=== PATIENT | male | born 1950 | race African-American/Black ===

== ENCOUNTER 2017-11-17 11:18 | Outpatient (CLI) | payer MEDICARE, OTHER ==
--- NOTE | 2017-11-17 13:19 | RAD ---
TWO VIEWS CHEST: Date: 11-17-17 Comparison: 03-28-10 History: Dyspnea. FINDINGS: There is mild increased interstitial density bilaterally. There is no pneumothorax or pleural fluid. There is no focal consolidation or alveolar edema. 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 NO focal consolidation or alveolar edema. IMPRESSION: Nonspecific linear interstitial density with no focal consolidation or alveolar edema. POS: [facility]
== END 2017-11-17 11:19 | disposition home or self-care (01) ==
LOC: RAD 11:18
PROVIDERS: ATTEND Internal Medicine
DX: J98.4 Other disorders of lung (principal)
CPT/HCPCS: 71046

== ENCOUNTER 2017-11-26 12:24 | Outpatient (CLI) | payer MEDICARE | END 2017-11-26 12:25 | disposition home or self-care (01) | LOC: CP 12:24 | PROVIDERS: ATTEND Internal Medicine | DX: J44.9 Chronic obstructive pulmonary disease, unspecified (principal) | CPT/HCPCS: 94060; 94727; 94729 ==

== ENCOUNTER 2021-11-26 23:16 | Inpatient (IN) | payer MEDICARE, OTHER ==
[2021-11-26] MEDS ORDERED: Aspirin Chewable 81 MG TAB ONE (23:35)
[2021-11-26] MEDS ORDERED: Nitroglycerin 2% Ointment 1 INCH/1 GM Packet ONE (23:35)
[2021-11-26 23:46] LABS: #Eosinphils 0.4 thou/uL (0.0-0.7); #Lymphocytes 2.3 thou/uL (1.20-3.40); #Monocytes 0.5 thou/uL (0.11-0.59); #Neutrophils 5.1 thou/uL (1.40-6.50); %Basophils 0.3 % (0.0-1.0); %Eosinophils 5.1 % (0.0-10.0); %Lymphocytes 27.8 % (21.0-51.0); %Monocytes 5.7 % (0.0-10.0); Hemoglobin 12.9 g/dL (14.0-18.0); Mean Corpuscular HGB CONC 34.1 g/dL (32.0-36.0); Mean Corpuscular Hemoglobin 31.3 pg (27.0-31.0); Mean Corpuscular Volume 91.7 fL (78.0-98.0); Mean Platelet Volume 6.9 fL (7.4-10.4); Platelet Count 343 thou/uL (130-400); RBC Distribution Width 12.5 % (11.5-14.5); Red Blood Cell (RBC) Count 4.13 mill/uL (4.70-6.10); White Blood Cell (WBC) Count 8.3 thou/uL (4.8-10.8)
[2021-11-27 00:03] LABS: ALT (SGPT) 15 U/L (8-55); AST (SGOT) 21 U/L (5-34); Albumin 3.7 g/dL (3.4-4.8); Alkaline Phosphatase 100 U/L (40-110); Anion Gap 15 mmol/L (10-20); BUN (Urea Nitrogen) 24 mg/dL (8.4-25.7); Bilirubin, Total 0.2 mg/dL (0.2-1.2); Calc. Creatinine Clearance 0 mL/min (70-130); Calcium 9.6 mg/dL (7.8-10.44); Carbon Dioxide 25 mmol/L (23-31); Chloride 97 mmol/L (98-107); Globulin 4.9 g/dL (2.4-3.5); Glucose 381 mg/dL (80-115); Potassium 4.4 mmol/L (3.5-5.1); Protein, Total 8.6 g/dL (5.8-8.1); Sodium 133 mmol/L (136-145)
[2021-11-27 00:05] LABS: Magnesium 1.8 mg/dL (1.6-2.6)
[2021-11-27] MEDS ORDERED: Bisacodyl 10 MG SUPP PR PRN (00:52)
[2021-11-27] MEDS ORDERED: HYDROcodone/Acetaminophen 10/325 mg Tablet PO PRN (00:52)
[2021-11-27] MEDS ORDERED: Acetaminophen 325 MG TAB PO PRN (00:52)
[2021-11-27] MEDS ORDERED: Nitroglycerin 0.4 MG TAB (25 Tab Bottle) SL PRN (00:52)
[2021-11-27] MEDS ORDERED: hydrALAZINE 20 MG/ML VIAL SLOW IVP PRN (00:54)
[2021-11-27] MEDS ORDERED: Dextrose 5% in Water 1,000 ML IV PRN (00:56)
[2021-11-27] MEDS ORDERED: HumaLOG 300 UNITS/3 ML VIAL SC PRN (00:56)
[2021-11-27] MEDS ORDERED: Dextrose 50% Abboject 50 ML SYRINGE SLOW IVP PRN (00:56)
[2021-11-27 01:27] VITALS: BMI 33.5
[2021-11-27 03:25] LABS: #Basophils 0.1 thou/uL (0.0-0.2); #Eosinphils 0.4 thou/uL (0.0-0.7); #Lymphocytes 2.2 thou/uL (1.20-3.40); #Monocytes 0.5 thou/uL (0.11-0.59); #Neutrophils 4.8 thou/uL (1.40-6.50); %Basophils 0.7 % (0.0-1.0); %Eosinophils 5.4 % (0.0-10.0); %Monocytes 6.2 % (0.0-10.0); %Neutrophils 59.7 % (42.0-75.0); Hemoglobin 11.7 g/dL (14.0-18.0); Mean Corpuscular HGB CONC 33.5 g/dL (32.0-36.0); Mean Corpuscular Volume 92.6 fL (78.0-98.0); Platelet Count 324 thou/uL (130-400); RBC Distribution Width 12.5 % (11.5-14.5); Red Blood Cell (RBC) Count 3.78 mill/uL (4.70-6.10)
[2021-11-27 03:47] LABS: Albumin 3.4 g/dL (3.4-4.8); Anion Gap 12 mmol/L (10-20); BUN (Urea Nitrogen) 25 mg/dL (8.4-25.7); BUN/Creatinine Ratio 22.73; Calc. Creatinine Clearance 95 mL/min (70-130); Calcium 9.6 mg/dL (7.8-10.44); Carbon Dioxide 25 mmol/L (23-31); Cardiac Risk 4.4 (Less than 4.5); Chloride 101 mmol/L (98-107); Cholesterol 151 mg/dl (< 200 Desired); Glucose 240 mg/dL (80-115); HDL Cholesterol 34 mg/dL (>60 Neg Risk); LDL Cholesterol, Calculated 91 mg/dL; Phosphorus 3.5 mg/dL (2.3-4.7); Potassium 4.1 mmol/L (3.5-5.1); Sodium 134 mmol/L (136-145); Triglycerides 130 mg/dL (Less than 150)
[2021-11-27 03:50] LABS: Troponin I 0.167 ng/mL (< 0.028)
[2021-11-27] MEDS: Brimonidine Tartrate 0.2% Ophth Soln 5 ml Bottle EA EYE SCH ×3 (06:13→22:35)
[2021-11-27] MEDS: Furosemide 40 MG/4 ML VIAL SLOW IVP SCH ×2 (06:13→14:43)
[2021-11-27 06:18] LABS: Troponin I 0.426 ng/mL (< 0.028)
[2021-11-27] MEDS ORDERED: glyBURIDE 5 MG TAB PO SCH (08:00)
[2021-11-27] MEDS ORDERED: metFORMIN 500 MG TAB PO SCH (08:00)
[2021-11-27] MEDS: Famotidine 20 MG TAB PO SCH ×2 (08:47→22:30)
[2021-11-27] MEDS: Carvedilol 6.25 MG TAB PO SCH ×2 (08:47→16:55)
[2021-11-27] MEDS: Clopidogrel Bisulfate 75 MG TAB PO SCH (08:47)
[2021-11-27] MEDS: Aspirin 81 mg Enteric Coated Tablet PO SCH (08:47)
[2021-11-27] MEDS: DorzolamidE/Timolol 2%/0.5% Ophth Soln 10 ml Bottle EA EYE SCH ×2 (08:56→22:28)
[2021-11-27] MEDS ORDERED: Aspirin Chewable 81 MG TAB PO SCH (09:00)
[2021-11-27] MEDS ORDERED: Enoxaparin Sodium 100 MG/ML SYRINGE SC SCH (09:00)
[2021-11-27] MEDS ORDERED: Enoxaparin Sodium 40 MG/0.4 ML SYRINGE SC SCH (09:00)
[2021-11-27] MEDS ORDERED: Communication Order-Pharmacy FS SCH (13:00)
[2021-11-27 14:36] LABS: CKMB 8.4 ng/mL (0-6.6)
[2021-11-27] MEDS ORDERED: Insulin Glargine 30 UNITS/0.3 ML VIAL SC SCH ×2 (15:30→21:00)
[2021-11-27] MEDS ORDERED: Electrolyte Replacement Protocol 1 EACH FS SCH (15:30)
[2021-11-27] MEDS ORDERED: Magnesium 2 GM/50 ML(in water) 2 GM in Premix Bag 1 BAG IVPB SCH (15:30)
[2021-11-27] MEDS ORDERED: Electrolyte Replacement Protocol FS PRN (15:45)
[2021-11-27] MEDS ORDERED: Atorvastatin Calcium 40 MG TAB PO SCH (21:00)
[2021-11-27] MEDS ORDERED: Atorvastatin Calcium 20 MG TAB PO SCH (21:00)
[2021-11-27] MEDS ORDERED: Latanoprost 0.005% Ophth Soln 2.5 ml Bottle EA EYE SCH (21:00)
[2021-11-27] MEDS ORDERED: Melatonin 3 MG TAB PO SCH (21:00)
[2021-11-28 04:58] LABS: #Eosinphils 0.5 thou/uL (0.0-0.7); #Lymphocytes 1.8 thou/uL (1.20-3.40); #Monocytes 0.6 thou/uL (0.11-0.59); #Neutrophils 3.5 thou/uL (1.40-6.50); %Basophils 0.4 % (0.0-1.0); %Eosinophils 7.3 % (0.0-10.0); %Lymphocytes 28.5 % (21.0-51.0); %Monocytes 8.9 % (0.0-10.0); %Neutrophils 54.9 % (42.0-75.0); Hemoglobin 12.3 g/dL (14.0-18.0); Mean Corpuscular HGB CONC 32.9 g/dL (32.0-36.0); Mean Corpuscular Hemoglobin 30.7 pg (27.0-31.0); Mean Corpuscular Volume 93.5 fL (78.0-98.0); Mean Platelet Volume 7.1 fL (7.4-10.4); Platelet Count 311 thou/uL (130-400); RBC Distribution Width 12.5 % (11.5-14.5); Red Blood Cell (RBC) Count 4.01 mill/uL (4.70-6.10); White Blood Cell (WBC) Count 6.3 thou/uL (4.8-10.8)
[2021-11-28 05:23] LABS: Critical Call Chem Troponin I RESULT DECREASING
[2021-11-28 05:25] LABS: Anion Gap 12 mmol/L (10-20); BUN (Urea Nitrogen) 22 mg/dL (8.4-25.7); Calc. Creatinine Clearance 88 mL/min (70-130); Calcium 9.4 mg/dL (7.8-10.44); Carbon Dioxide 27 mmol/L (23-31); Chloride 99 mmol/L (98-107); Glucose 204 mg/dL (80-115); Magnesium 2.2 mg/dL (1.6-2.6); Potassium 4.2 mmol/L (3.5-5.1); Sodium 134 mmol/L (136-145)
[2021-11-28] MEDS ORDERED: Sodium Chloride 0.9% 1,000 ML IV SCH ×2 (06:00→08:50)
[2021-11-28 06:18] LABS: CKMB 4.9 ng/mL (0-6.6)
[2021-11-28] MEDS: Aspirin 81 mg Enteric Coated Tablet PO SCH (06:23)
[2021-11-28] MEDS: Carvedilol 6.25 MG TAB PO SCH ×2 (06:24→17:00)
[2021-11-28] MEDS: Famotidine 20 MG TAB PO SCH (06:24)
[2021-11-28] MEDS: Clopidogrel Bisulfate 75 MG TAB PO SCH (06:24)
[2021-11-28] MEDS: Brimonidine Tartrate 0.2% Ophth Soln 5 ml Bottle EA EYE SCH ×2 (06:25→16:18)
[2021-11-28] MEDS: DorzolamidE/Timolol 2%/0.5% Ophth Soln 10 ml Bottle EA EYE SCH (06:26)
[2021-11-28] MEDS ORDERED: Lidocaine 1% (PF) 30 ML VIAL ONE (06:38)
[2021-11-28] MEDS ORDERED: Heparin 10,000 UNITS/ 10 ML VIAL ONE (06:42)
[2021-11-28] MEDS ORDERED: Midazolam HCl 2 mg/2 ml Vial ONE (07:25)
[2021-11-28] MEDS ORDERED: Fentanyl 100 MCG/2 ML VIAL ONE (07:26)
[2021-11-28] MEDS ORDERED: Protamine Sulfate 50 MG/5 ML VIAL ONE (08:19)
[2021-11-28] MEDS ORDERED: Nitroglycerin 0.4 MG TAB (25 Tab Bottle) SL PRN (08:49)
[2021-11-28] MEDS ORDERED: Sodium Chloride 0.9% 200 ML IV PRN (08:49)
[2021-11-28] MEDS ORDERED: Acetaminophen/Codeine 30-300mg Tablet PO PRN ×2 (08:49)
[2021-11-28] MEDS ORDERED: Iopamidol 370 76% 100 ML VIAL ONE (08:50)
[2021-11-28] MEDS ORDERED: Iopamidol 370 76% 50 ML VIAL FS ONE (08:50)
[2021-11-28] MEDS: HumaLOG 300 UNITS/3 ML VIAL SC PRN ×2 (11:21→16:59)
[2021-11-28 16:06] VITALS: TEMP 97.8
[2021-11-28] MEDS ORDERED: glyBURIDE 5 MG TAB PO SCH (17:00)
[2021-11-28 17:02] VITALS: BP 156/76
[2021-11-28] MEDS ORDERED: Insulin Glargine 30 UNITS/0.3 ML VIAL SC SCH (21:00)
[2021-11-28] MEDS ORDERED: Rosuvastatin 20 MG TAB PO SCH (21:00)
== END 2021-11-28 17:45 | disposition home or self-care (01) | DRG 280 ==
LOC: ERS 23:16 → 2SW 11-27 00:18 → OBSVTOIN 11-27 14:56
PROVIDERS: ADMIT Student in an Organized Health Care Education/Training Program; ATTEND Internal Medicine
PROC: 4A023N7 Measurement of Cardiac Sampling and Pressure, Left Heart, Percutaneous Approach (ICD-10-PCS; principal; 2021-11-28)
PROC: B2131ZZ Fluoroscopy of Multiple Coronary Artery Bypass Grafts using Low Osmolar Contrast (ICD-10-PCS; 2021-11-28)
PROC: B2111ZZ Fluoroscopy of Multiple Coronary Arteries using Low Osmolar Contrast (ICD-10-PCS; 2021-11-28)
PROC: B2151ZZ Fluoroscopy of Left Heart using Low Osmolar Contrast (ICD-10-PCS; 2021-11-28)
DX: I21.4 Non-ST elevation (NSTEMI) myocardial infarction (principal); I50.23 Acute on chronic systolic (congestive) heart failure; N17.9 Acute kidney failure, unspecified; I11.0 Hypertensive heart disease with heart failure; E11.9 Type 2 diabetes mellitus without complications; E78.5 Hyperlipidemia, unspecified; E78.00 Pure hypercholesterolemia, unspecified; Z20.822 Contact with and (suspected) exposure to COVID-19; E66.9 Obesity, unspecified; F10.20 Alcohol dependence, uncomplicated; I25.10 Atherosclerotic heart disease of native coronary artery without angina pectoris; Z95.1 Presence of aortocoronary bypass graft; Z79.82 Long term (current) use of aspirin; Z79.899 Other long term (current) drug therapy; Z79.4 Long term (current) use of insulin; I25.2 Old myocardial infarction; Z87.891 Personal history of nicotine dependence; Z72.89 Other problems related to lifestyle; Z68.33 Body mass index [BMI] 33.0-33.9, adult
CPT/HCPCS: 36415; 36416; 71045; 80048; 80053; 80061; 80069; 82553; 83735; 83880; 84484; 85025; 85347; 93005; 93306; 93459; 93798; 99152; 99153; J1644; J1650; J1815; J1940; J2001; J2250; J2720; J3010; J3475; J7050; Q9967; U0003; U0005

== ENCOUNTER 2022-05-26 19:06 | Inpatient (IN) | payer OTHER ==
[2022-05-26 20:06] LABS: #Eosinphils 0.3 thou/uL (0.0-0.7); #Lymphocytes 1.6 thou/uL (1.20-3.40); #Monocytes 0.6 thou/uL (0.11-0.59); #Neutrophils 2.7 thou/uL (1.40-6.50); %Basophils 0.6 % (0.0-1.0); %Eosinophils 6.2 % (0.0-10.0); %Lymphocytes 29.8 % (21.0-51.0); %Monocytes 11.2 % (0.0-10.0); %Neutrophils 52.2 % (42.0-75.0); Hemoglobin 11.3 g/dL (14.0-18.0); Mean Corpuscular HGB CONC 33.6 g/dL (32.0-36.0); Mean Corpuscular Hemoglobin 30.8 pg (27.0-31.0); Mean Corpuscular Volume 91.5 fl (78.0-98.0); Platelet Count 238 10x3/uL (130-400); RBC Distribution Width 12.5 % (11.5-14.5); Red Blood Cell (RBC) Count 3.69 mill/uL (4.70-6.10); White Blood Cell (WBC) Count 5.2 10x3/uL (4.8-10.8)
[2022-05-26 20:24] LABS: ALT (SGPT) 26 U/L (8-55); AST (SGOT) 35 U/L (5-34); Albumin 3.9 g/dL (3.4-4.8); Alkaline Phosphatase 98 U/L (40-110); Anion Gap 11 mmol/L (10-20); BUN (Urea Nitrogen) 33 mg/dL (8.4-25.7); Bilirubin, Total 0.3 mg/dL (0.2-1.2); Calc. Creatinine Clearance 0 mL/min (70-130); Calcium 9.4 mg/dL (7.8-10.44); Carbon Dioxide 24 mmol/L (23-31); Chloride 104 mmol/L (98-107); Estimated GFR 59; Globulin 3.8 g/dL (2.4-3.5); Glucose 308 mg/dL (80-115); Potassium 4.4 mmol/L (3.5-5.1); Protein, Total 7.7 g/dL (5.8-8.1); Sodium 135 mmol/L (136-145)
[2022-05-26] MEDS ORDERED: Aspirin Chewable 81 MG TAB ONE (20:43)
[2022-05-26] MEDS ORDERED: Ondansetron ODT 4 MG TAB PO PRN (22:47)
[2022-05-26] MEDS ORDERED: Acetaminophen 650 MG Suppository PR PRN (22:47)
[2022-05-26] MEDS ORDERED: Ondansetron PF 4 MG/2 ML Vial IVP PRN (22:47)
[2022-05-26 23:15] LABS: Troponin I 0.015 ng/mL (< 0.028)
[2022-05-26] MEDS ORDERED: Furosemide 40 MG/4 ML VIAL SLOW IVP SCH (23:45)
[2022-05-26 23:46] LABS: SARS-CoV-2 NAA Rapid Test Not Detected (NotDetected)
[2022-05-27] MEDS: Sodium Chloride 0.9% 1,000 ML IV SCH ×2 (01:28→12:33)
[2022-05-27] MEDS ORDERED: Morphine 4 MG/ML VIAL SLOW IVP PRN (01:41)
[2022-05-27] MEDS ORDERED: Dextrose 5% in Water 1,000 ML IV PRN (01:44)
[2022-05-27] MEDS ORDERED: Dextrose 50% Abboject 50 ML SYRINGE SLOW IVP PRN (01:44)
[2022-05-27] MEDS ORDERED: HumaLOG 300 UNITS/3 ML VIAL SC PRN ×2 (01:44)
[2022-05-27] MEDS ORDERED: Nitroglycerin 2% Ointment 1 INCH/1 GM Packet TOP SCH (01:45)
[2022-05-27 02:32] LABS: #Eosinphils 0.4 thou/uL (0.0-0.7); #Monocytes 0.8 thou/uL (0.11-0.59); %Basophils 0.6 % (0.0-1.0); %Eosinophils 7.1 % (0.0-10.0); %Lymphocytes 31.7 % (21.0-51.0); %Monocytes 12.8 % (0.0-10.0); %Neutrophils 47.8 % (42.0-75.0); Hemoglobin 11.6 g/dL (14.0-18.0); Mean Corpuscular Hemoglobin 31.1 pg (27.0-31.0); Mean Corpuscular Volume 91.5 fl (78.0-98.0); Mean Platelet Volume 7.9 fL (7.4-10.4); Platelet Count 241 10x3/uL (130-400); RBC Distribution Width 12.8 % (11.5-14.5); Red Blood Cell (RBC) Count 3.71 mill/uL (4.70-6.10); White Blood Cell (WBC) Count 6.3 10x3/uL (4.8-10.8)
[2022-05-27 02:42] LABS: Troponin I 0.015 ng/mL (< 0.028)
[2022-05-27] MEDS ORDERED: hydrALAZINE 20 MG/ML VIAL SLOW IVP PRN (02:51)
[2022-05-27 03:05] LABS: Anion Gap 14 mmol/L (10-20); BUN (Urea Nitrogen) 31 mg/dL (8.4-25.7); Calc. Creatinine Clearance 88 mL/min (70-130); Calcium 9.6 mg/dL (7.8-10.44); Carbon Dioxide 23 mmol/L (23-31); Chloride 106 mmol/L (98-107); Estimated GFR 69; Glucose 93 mg/dL (80-115); Sodium 139 mmol/L (136-145)
[2022-05-27] MEDS: Enoxaparin Sodium 100 MG/ML SYRINGE SC SCH ×2 (04:04→18:40)
[2022-05-27 04:47] LABS: Bacteria/HPF None Seen HPF (None Seen); Bilirubin Negative (Negative); Blood, Urine Negative (Negative); Clarity Clear (Clear); Glucose, Urine (Dipstick) 100 mg/dL (Negative); Ketone, Urine Negative (Negative); Leukocyte Negative Leu/uL (Negative); Nitrite Negative (Negative); Protein, Urine (Dipstick) 70 mg/dL (Neg-Trace); RBC/HPF 0-3 HPF (0-3); Specific Gravity, Urine 1.012 (1.002-1.036); Squamous Epithelial None Seen HPF (0-3); Urobilinogen Normal mg/dL (Less than 2); WBC/HPF 0-3 HPF (0-3)
[2022-05-27] MEDS: Aspirin Chewable 81 MG TAB PO SCH (08:33)
[2022-05-27] MEDS: Brimonidine Tartrate 0.2% Ophth Soln 5 ml Bottle EA EYE SCH ×2 (15:58→22:29)
[2022-05-27] MEDS: Carvedilol 6.25 MG TAB PO SCH (16:47)
[2022-05-27] MEDS: Rosuvastatin 20 MG TAB PO SCH (19:45)
[2022-05-27 21:00] LABS: CKMB 5.3 ng/mL (0-6.6)
[2022-05-27] MEDS ORDERED: Nitroglycerin 0.4 MG TAB (25 Tab Bottle) ONE (21:11)
[2022-05-27] MEDS ORDERED: Nitroglycerin 50 MG/250 ML BOT 250 ML IVPB SCH (21:30)
[2022-05-27] MEDS ORDERED: Heparin 25,000 units/D5W 500 ML IVPB SCH (21:30)
[2022-05-27] MEDS ORDERED: Heparin 10,000 UNITS/ 10 ML VIAL SLOW IVP SCH (21:30)
[2022-05-27 22:24] LABS: Hemoglobin 11.4 g/dL (14.0-18.0); Platelet Count 235 10x3/uL (130-400)
[2022-05-27] MEDS: Insulin Glargine 30 UNITS/0.3 ML VIAL SC SCH (22:28)
[2022-05-27] MEDS: DorzolamidE/Timolol 2%/0.5% Ophth Soln 10 ml Bottle EA EYE SCH (22:29)
[2022-05-27] MEDS: Latanoprost 0.005% Ophth Soln 2.5 ml Bottle EA EYE SCH (22:29)
[2022-05-27] MEDS: Nitroglycerin 50 MG/250 ML BOT 250 ML ONE ×2 (23:41→23:44)
[2022-05-28] MEDS ORDERED: Morphine 4 MG/ML VIAL SLOW IVP PRN (00:21)
[2022-05-28] MEDS ORDERED: Clopidogrel Bisulfate 300 MG TAB PO SCH (05:00)
[2022-05-28 06:48] LABS: #Eosinphils 0.3 thou/uL (0.0-0.7); #Lymphocytes 1.5 thou/uL (1.20-3.40); #Monocytes 0.6 thou/uL (0.11-0.59); #Neutrophils 2.6 thou/uL (1.40-6.50); %Basophils 0.6 % (0.0-1.0); %Eosinophils 6.3 % (0.0-10.0); %Lymphocytes 30.1 % (21.0-51.0); %Monocytes 11.7 % (0.0-10.0); %Neutrophils 51.3 % (42.0-75.0); Hemoglobin 12.1 g/dL (14.0-18.0); Mean Corpuscular HGB CONC 32.6 g/dL (32.0-36.0); Mean Corpuscular Hemoglobin 30.3 pg (27.0-31.0); Mean Corpuscular Volume 92.8 fl (78.0-98.0); Mean Platelet Volume 7.4 fL (7.4-10.4); Platelet Count 245 10x3/uL (130-400); RBC Distribution Width 12.6 % (11.5-14.5); Red Blood Cell (RBC) Count 3.99 mill/uL (4.70-6.10); White Blood Cell (WBC) Count 5.1 10x3/uL (4.8-10.8)
[2022-05-28 06:59] LABS: Anion Gap 10 mmol/L (10-20); BUN (Urea Nitrogen) 18 mg/dL (8.4-25.7); Calc. Creatinine Clearance 101 mL/min (70-130); Calcium 9.3 mg/dL (7.8-10.44); Carbon Dioxide 26 mmol/L (23-31); Chloride 104 mmol/L (98-107); Estimated GFR 82; Glucose 175 mg/dL (80-115); Potassium 4.5 mmol/L (3.5-5.1); Sodium 135 mmol/L (136-145)
[2022-05-28 07:36] LABS: CKMB 4.9 ng/mL (0-6.6)
[2022-05-28] MEDS ORDERED: Lidocaine 1% (PF) 30 ML VIAL ONE (07:43)
[2022-05-28] MEDS ORDERED: Heparin 10,000 UNITS/ 10 ML VIAL ONE (07:43)
[2022-05-28] MEDS: Carvedilol 6.25 MG TAB PO SCH ×2 (08:05→15:55)
[2022-05-28] MEDS: Furosemide 40 MG TAB PO SCH (08:05)
[2022-05-28] MEDS: Clopidogrel Bisulfate 75 MG TAB PO SCH (08:05)
[2022-05-28] MEDS: Aspirin Chewable 81 MG TAB PO SCH (08:05)
[2022-05-28] MEDS: Brimonidine Tartrate 0.2% Ophth Soln 5 ml Bottle EA EYE SCH ×3 (08:15→21:29)
[2022-05-28] MEDS: DorzolamidE/Timolol 2%/0.5% Ophth Soln 10 ml Bottle EA EYE SCH ×2 (08:15→21:29)
[2022-05-28] MEDS ORDERED: Sodium Chloride 0.9% 1,000 ML IV SCH ×2 (08:45→11:54)
[2022-05-28] MEDS ORDERED: Communication Order-Pharmacy FS SCH (08:45)
[2022-05-28] MEDS ORDERED: Insulin Glargine 30 UNITS/0.3 ML VIAL SC SCH (09:00)
[2022-05-28] MEDS ORDERED: Enoxaparin Sodium 100 MG/ML SYRINGE SC SCH (09:00)
[2022-05-28] MEDS ORDERED: FENTANYL 50 MCG/ML 1 ML VIAL ONE (09:58)
[2022-05-28] MEDS ORDERED: Midazolam HCl 2 mg/2 ml Vial ONE (09:58)
[2022-05-28] MEDS ORDERED: Nitroglycerin 100MG/250ML BOT 250 ML ONE (10:37)
[2022-05-28] MEDS ORDERED: Bivalirudin 250 MG VIAL ONE (10:48)
[2022-05-28] MEDS ORDERED: Nitroglycerin 50 MG/250 ML BOT 250 ML IVPB SCH (11:52)
[2022-05-28 13:03] LABS: Critical Call Chem Troponin I RESULT DECREASING; Troponin I 0.325 ng/mL (< 0.028)
[2022-05-28] MEDS ORDERED: Iopamidol 370 76% 50 ML VIAL FS ONE (15:44)
[2022-05-28] MEDS ORDERED: Iopamidol 370 76% 100 ML VIAL ONE (15:44)
[2022-05-28] MEDS: Acetaminophen 325 MG TAB PO PRN (16:57)
[2022-05-28] MEDS: Insulin Glargine 30 UNITS/0.3 ML VIAL SC SCH (21:30)
[2022-05-28] MEDS: Latanoprost 0.005% Ophth Soln 2.5 ml Bottle EA EYE SCH (21:30)
[2022-05-28] MEDS: Rosuvastatin 20 MG TAB PO SCH (21:31)
[2022-05-29 03:51] LABS: #Eosinphils 0.3 thou/uL (0.0-0.7); #Lymphocytes 1.2 thou/uL (1.20-3.40); #Monocytes 0.7 thou/uL (0.11-0.59); #Neutrophils 4.8 thou/uL (1.40-6.50); %Basophils 0.6 % (0.0-1.0); %Eosinophils 4.2 % (0.0-10.0); %Lymphocytes 17.3 % (21.0-51.0); %Monocytes 9.8 % (0.0-10.0); %Neutrophils 68.1 % (42.0-75.0); Hemoglobin 12.6 g/dL (14.0-18.0); Mean Corpuscular HGB CONC 34.7 g/dL (32.0-36.0); Mean Corpuscular Hemoglobin 31.5 pg (27.0-31.0); Mean Corpuscular Volume 90.6 fl (78.0-98.0); Mean Platelet Volume 7.5 fL (7.4-10.4); Platelet Count 249 10x3/uL (130-400); RBC Distribution Width 12.6 % (11.5-14.5); White Blood Cell (WBC) Count 7.1 10x3/uL (4.8-10.8)
[2022-05-29 04:07] LABS: ALT (SGPT) 21 U/L (8-55); AST (SGOT) 19 U/L (5-34); Albumin 3.6 g/dL (3.4-4.8); Alkaline Phosphatase 106 U/L (40-110); Anion Gap 11 mmol/L (10-20); BUN (Urea Nitrogen) 28 mg/dL (8.4-25.7); Bilirubin, Total 0.4 mg/dL (0.2-1.2); Calc. Creatinine Clearance 72 mL/min (70-130); Calcium 9.1 mg/dL (7.8-10.44); Carbon Dioxide 23 mmol/L (23-31); Chloride 105 mmol/L (98-107); Estimated GFR 55; Globulin 4.1 g/dL (2.4-3.5); Glucose 136 mg/dL (80-115); Potassium 4.4 mmol/L (3.5-5.1); Protein, Total 7.7 g/dL (5.8-8.1); Sodium 135 mmol/L (136-145)
[2022-05-29] MEDS: Aspirin Chewable 81 MG TAB PO SCH (08:58)
[2022-05-29] MEDS: Carvedilol 6.25 MG TAB PO SCH ×2 (08:59→17:28)
[2022-05-29] MEDS: Clopidogrel Bisulfate 75 MG TAB PO SCH (08:59)
[2022-05-29] MEDS: Furosemide 40 MG TAB PO SCH (09:00)
[2022-05-29] MEDS: Insulin Glargine 30 UNITS/0.3 ML VIAL SC SCH ×2 (09:00→20:57)
[2022-05-29] MEDS: DorzolamidE/Timolol 2%/0.5% Ophth Soln 10 ml Bottle EA EYE SCH ×2 (09:13→20:57)
[2022-05-29] MEDS: Brimonidine Tartrate 0.2% Ophth Soln 5 ml Bottle EA EYE SCH ×3 (09:13→20:57)
[2022-05-29] MEDS: metFORMIN 500 MG TAB PO SCH ×2 (09:46→17:26)
[2022-05-29 13:52] VITALS: BMI 33.8
[2022-05-29] MEDS ORDERED: metFORMIN 500 MG TAB PO SCH (17:00)
[2022-05-29 17:30] LABS: Anion Gap 12 mmol/L (10-20); BUN (Urea Nitrogen) 43 mg/dL (8.4-25.7); Calc. Creatinine Clearance 57 mL/min (70-130); Calcium 8.8 mg/dL (7.8-10.44); Carbon Dioxide 22 mmol/L (23-31); Chloride 102 mmol/L (98-107); Estimated GFR 40; Glucose 142 mg/dL (80-115); Potassium 4.4 mmol/L (3.5-5.1); Sodium 132 mmol/L (136-145)
[2022-05-29] MEDS ORDERED: Bisacodyl 5 MG TAB PO PRN (18:23)
[2022-05-29] MEDS: Latanoprost 0.005% Ophth Soln 2.5 ml Bottle EA EYE SCH (20:56)
[2022-05-29] MEDS: Rosuvastatin 20 MG TAB PO SCH (20:58)
[2022-05-29] MEDS: Senokot S 8.6-50 MG TAB PO SCH (20:59)
[2022-05-29 21:17] LABS: Platelet Count 216 10x3/uL (130-400)
[2022-05-30 05:41] LABS: Anion Gap 13 mmol/L (10-20); BUN (Urea Nitrogen) 37 mg/dL (8.4-25.7); Calc. Creatinine Clearance 71 mL/min (70-130); Calcium 8.8 mg/dL (7.8-10.44); Carbon Dioxide 20 mmol/L (23-31); Chloride 103 mmol/L (98-107); Estimated GFR 51; Glucose 155 mg/dL (80-115); Potassium 4.1 mmol/L (3.5-5.1); Sodium 132 mmol/L (136-145)
[2022-05-30 07:48] VITALS: TEMP 97.6
[2022-05-30] MEDS: Insulin Glargine 30 UNITS/0.3 ML VIAL SC SCH (08:05)
[2022-05-30] MEDS: Aspirin Chewable 81 MG TAB PO SCH (08:07)
[2022-05-30] MEDS: Clopidogrel Bisulfate 75 MG TAB PO SCH (08:07)
[2022-05-30] MEDS: Carvedilol 6.25 MG TAB PO SCH (08:07)
[2022-05-30] MEDS: Senokot S 8.6-50 MG TAB PO SCH (08:07)
[2022-05-30] MEDS: Brimonidine Tartrate 0.2% Ophth Soln 5 ml Bottle EA EYE SCH (08:10)
[2022-05-30] MEDS: DorzolamidE/Timolol 2%/0.5% Ophth Soln 10 ml Bottle EA EYE SCH (08:11)
[2022-05-30 11:22] VITALS: BP 110/59
[2022-05-30] MEDS: Acetaminophen 325 MG TAB PO PRN (11:22)
[2022-05-30] MEDS ORDERED: Insulin Glargine 30 UNITS/0.3 ML VIAL SC SCH (21:00)
== END 2022-05-30 16:22 | disposition home or self-care (01) | DRG 247 ==
LOC: ERS 19:06 → 2SW 22:31 → OBSVTOIN 05-27 21:26 → CCU 05-27 21:35 → 2SW 05-29 13:47
PROVIDERS: ADMIT Internal Medicine; ATTEND Internal Medicine
PROC: 4A023N7 Measurement of Cardiac Sampling and Pressure, Left Heart, Percutaneous Approach (ICD-10-PCS; principal; 2022-05-28)
PROC: B2151ZZ Fluoroscopy of Left Heart using Low Osmolar Contrast (ICD-10-PCS; 2022-05-28)
PROC: B2111ZZ Fluoroscopy of Multiple Coronary Arteries using Low Osmolar Contrast (ICD-10-PCS; 2022-05-28)
PROC: B2131ZZ Fluoroscopy of Multiple Coronary Artery Bypass Grafts using Low Osmolar Contrast (ICD-10-PCS; 2022-05-28)
PROC: 027034Z Dilation of Coronary Artery, One Artery with Drug-eluting Intraluminal Device, Percutaneous Approach (ICD-10-PCS; 2022-05-28)
DX: I21.4 Non-ST elevation (NSTEMI) myocardial infarction (principal); T82.857A Stenosis of other cardiac prosthetic devices, implants and grafts, initial encounter; I13.0 Hypertensive heart and chronic kidney disease with heart failure and stage 1 through stage 4 chronic kidney disease, or unspecified chronic kidney disease; I50.32 Chronic diastolic (congestive) heart failure; N17.9 Acute kidney failure, unspecified; I25.110 Atherosclerotic heart disease of native coronary artery with unstable angina pectoris; Z20.822 Contact with and (suspected) exposure to COVID-19; E78.5 Hyperlipidemia, unspecified; N18.2 Chronic kidney disease, stage 2 (mild); E11.22 Type 2 diabetes mellitus with diabetic chronic kidney disease; E78.00 Pure hypercholesterolemia, unspecified; I25.5 Ischemic cardiomyopathy; Y83.2 Surgical operation with anastomosis, bypass or graft as the cause of abnormal reaction of the patient, or of later complication, without mention of misadventure at the time of the procedure; D53.9 Nutritional anemia, unspecified; E66.9 Obesity, unspecified; K59.00 Constipation, unspecified; Z68.33 Body mass index [BMI] 33.0-33.9, adult; Z91.018 Allergy to other foods; Z79.899 Other long term (current) drug therapy; Z79.4 Long term (current) use of insulin; Z79.82 Long term (current) use of aspirin; Z79.84 Long term (current) use of oral hypoglycemic drugs; Z95.1 Presence of aortocoronary bypass graft; Z90.89 Acquired absence of other organs; Z98.49 Cataract extraction status, unspecified eye; Z87.891 Personal history of nicotine dependence
CPT/HCPCS: 36415; 36416; 71045; 80048; 80053; 81001; 82553; 83735; 83880; 84484; 85014; 85018; 85025; 85049; 85347; 85730; 92928; 93005; 93010; 93459; 93798; 96372; 96374; 97139; 99152; 99153; C1769; C1874; C1894; C9600; G0378; J0360; J0583; J1644; J1650; J1815; J2001; J2250; J2270; J2405; J3010; J7050; Q9967